=== PATIENT | male | born 1935 | race Caucasian/White ===

== ENCOUNTER 2016-12-02 17:42 | Inpatient (IN) | payer MEDICARE, OTHER ==
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
[2016-12-02 19:49] LABS: ABSOLUTE EOSINOPHILS # (AUTO) 0.1 10^3/uL (0.0-0.6); ABSOLUTE LYMPHOCYTES (AUTO) 0.5 10^3/uL (0.5-4.7); ABSOLUTE MONOCYTES (AUTO) 0.5 10^3/uL (0.1-1.4); ABSOLUTE NEUT (AUTO) 5.4 10^3/uL (1.7-8.2); BASOPHILS % (AUTO) 0.7 % (0-2); EOSINOPHILS % (AUTO) 2.2 % (0-6); HEMATOCRIT 23.2 % (37.9-51.0); HGB HCT DIFFERENCE -0.7; LYMPHOCYTES % (AUTO) 7.9 % (13-45); MEAN CORPUSCULAR HEMOGLOBIN 24.8 pg (27.0-33.4); MEAN CORPUSCULAR HGB CONC 32.1 g/dL (32.0-36.0); MEAN CORPUSCULAR VOLUME 77 fl (80-97); MONOCYTES % (AUTO) 7.4 % (3-13); RED CELL DISTRIBUTION WIDTH 18.1 % (11.5-14.0); SEGMENTED NEUTROPHILS % (AUTO) 81.8 % (42-78); WHITE BLOOD COUNT 6.6 10^3/uL (4.0-10.5)
[2016-12-02 19:59] LABS: HEMOGLOBIN 7.5 g/dL (13.5-17.0)
[2016-12-02 20:02] LABS: ALANINE AMINOTRANSFERASE 43 U/L (21-72); ALBUMIN 3.2 g/dL (3.5-5.0); ALKALINE PHOSPHATASE 191 U/L (38-126); ANION GAP 15 (5-19); ASPARTATE AMINO TRANSFERASE 34 U/L (17-59); BILIRUBIN,TOTAL 0.6 mg/dL (0.2-1.3); BLOOD UREA NITROGEN 65 mg/dL (7-20); CALCIUM 9.1 mg/dL (8.4-10.2); CARBON DIOXIDE 20 mmol/L (22-30); CHLORIDE 100 mmol/L (98-107); CREATINE KINASE 162 U/L (55-170); CREATININE RESULT 3.11 mg/dL (0.52-1.25); GLUCOSE 132 mg/dL (75-110); POTASSIUM 4.2 mmol/L (3.6-5.0); SODIUM 135.1 mmol/L (137-145); TOTAL PROTEIN 6.7 g/dL (6.3-8.2)
[2016-12-02 20:14] LABS: CREATINE KINASE MB 7.84 ng/mL (<4.55); TROPONIN I 0.017 ng/mL
[2016-12-02 21:36] LABS: PROTHROMBIN TIME 19.5 SEC (11.4-15.4)
[2016-12-02 21:37] LABS: PARTIAL THROMBOPLASTIN TIME 65.7 SEC (23.5-35.8)
[2016-12-02 22:02] LABS: APPEARANCE,URINE CLEAR; BILIRUBIN,URINE NEGATIVE (NEGATIVE); GLUCOSE, URINE NEGATIVE (NEGATIVE); KETONES,URINE NEGATIVE (NEGATIVE); LEUKOCYTE ESTERASE,URINE NEGATIVE (NEGATIVE); NITRITE,URINE NEGATIVE (NEGATIVE); PROTEIN,URINE NEGATIVE (NEGATIVE); URINE SPECIFIC GRAVITY 1.009; UROBILINOGEN,URINE NEGATIVE mg/dL (<2.0)
[2016-12-02] MEDS ORDERED: METHYLPREDNISOLONE INJ 125 MG/2 ML SDV IV ONE (22:31)
[2016-12-02] MEDS ORDERED: IPRATROPIUM/ALBUTEROL 0.5-2.5 MG/3 ML AMPUL NEB ONE (22:31)
[2016-12-02] MEDS ORDERED: FUROSEMIDE INJ/PF 100 MG/10 ML SDV IV ONE (22:31)
[2016-12-02] MEDS ORDERED: DILTIAZEM HCL/D5W 125 ML IV PRN (22:34)
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
[2016-12-03] MEDS ORDERED: ROPINIROLE HCL 1 MG TABLET PO PRN (05:22)
[2016-12-03] MEDS ORDERED: NORMAL SALINE 250 ML IV PRN (05:27)
[2016-12-03] MEDS: FUROSEMIDE INJ/PF 40 MG/4 ML SDV IV SCH ×2 (06:43→18:36)
[2016-12-03] MEDS ORDERED: ENOXAPARIN SODIUM INJ 30 MG/0.3 ML DISP.SYRIN SUBCUT SCH (08:00)
--- NOTE | 2016-12-03 08:11 | EKG REPORT ---
SEVERITY:- ABNORMAL ECG - ATRIAL FIBRILLATION, V-RATE 78-136 NONSPECIFIC T ABNORMALITIES, LATERAL LEADS BORDERLINE PROLONGED QT INTERVAL : Confirmed by: Abigail Peace MD 03-Dec-2016 08:11:00
[2016-12-03] MEDS: ATORVASTATIN CALCIUM 10 MG TABLET PO SCH (09:38)
[2016-12-03] MEDS: ROFLUMILAST 500 MCG TABLET PO SCH (09:38)
[2016-12-03] MEDS: FAMOTIDINE 20 MG TABLET PO SCH ×2 (09:39→22:00)
[2016-12-03] MEDS: TIOTROPIUM BROMIDE DPI 5 CAP/KIT (18 MCG/CAP) IH SCH (09:40)
[2016-12-03] MEDS: BUDESONIDE/FORMOTEROL 160-4.5 MCG 60 PUFF/6 GM MDI IH SCH ×2 (09:44→18:37)
[2016-12-03] MEDS ORDERED: METOPROLOL SUCCINATE 50 MG TAB.SR.24H PO SCH (10:00)
[2016-12-03] MEDS: IPRATROPIUM/ALBUTEROL 0.5-2.5 MG/3 ML AMPUL NEB SCH ×3 (11:24→20:50)
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
[2016-12-03 14:16] LABS: FOLATE > 20.00 ng/mL (>2.76)
[2016-12-03] MEDS: DABIGATRAN ETEXILATE 75 MG CAPSULE PO SCH ×2 (15:09→21:57)
[2016-12-03] MEDS: LEVOFLOXACIN 500 MG TABLET PO SCH (15:13)
[2016-12-03] MEDS: PREDNISONE 20 MG TABLET PO SCH (18:40)
[2016-12-03] MEDS: TAMSULOSIN HCL 0.4 MG CAP.SR.24H PO SCH (18:40)
[2016-12-03] MEDS: FINASTERIDE 5 MG TABLET PO SCH (22:00)
[2016-12-03] MEDS ORDERED: DILTIAZEM HCL 240 MG CAPSULE.CR PO ONE (23:00)
[2016-12-04] MEDS ORDERED: NORMAL SALINE 250 ML IV PRN (05:13)
[2016-12-04 05:27] LABS: ANION GAP 14 (5-19); BLOOD UREA NITROGEN 76 mg/dL (7-20); CALCIUM 9.2 mg/dL (8.4-10.2); CARBON DIOXIDE 21 mmol/L (22-30); CHLORIDE 100 mmol/L (98-107); CREATININE RESULT 2.93 mg/dL (0.52-1.25); GLUCOSE 120 mg/dL (75-110); POTASSIUM 4.4 mmol/L (3.6-5.0); SODIUM 135.4 mmol/L (137-145)
[2016-12-04 05:30] LABS: HEMATOCRIT 24.7 % (37.9-51.0); HGB HCT DIFFERENCE -0.7; MEAN CORPUSCULAR HEMOGLOBIN 25.4 pg (27.0-33.4); MEAN CORPUSCULAR HGB CONC 32.4 g/dL (32.0-36.0); MEAN CORPUSCULAR VOLUME 79 fl (80-97); RED BLOOD COUNT 3.15 10^6/uL (4.35-5.55); RED CELL DISTRIBUTION WIDTH 18.7 % (11.5-14.0); WHITE BLOOD COUNT 8.9 10^3/uL (4.0-10.5)
[2016-12-04 05:37] LABS: BAND NEUTROPHILS % (MANUAL) 1 % (3-5); BASOPHILS % (MANUAL) 0 % (0-2); EOSINOPHILS % (MANUAL) 0 % (0-6); LYMPHOCYTES % (MANUAL) 2 % (13-45); TOTAL CELLS COUNTED 100
[2016-12-04 05:38] LABS: ANISOCYTOSIS 1+
[2016-12-04 05:39] LABS: HYPOCHROMASIA SLIGHT; MICROCYTOSIS SLIGHT; POLYCHROMASIA SLIGHT
--- NOTE | 2016-12-04 08:07 | PDOC PROGRESS REPORT ---
Subjective Progress Note for:: 12/04/16 Physical Exam Vital Signs: Temp Pulse Resp BP Pulse Ox 97.4 F 63 16 108/65 100 12/04/16 06:55 12/04/16 06:55 12/04/16 06:55 12/04/16 06:55 12/04/16 06:55 Intake & Output 12/03/16 12/04/16 12/05/16 07:59 07:59 07:59 Intake Total 0 1110 Output Total 1450 Balance 0 -340 Weight 173 lb 8.061 oz General appearance: PRESENT: no acute distress Respiratory exam: PRESENT: prolonged expiratory phas, rhonchi, wheezes - mild Cardiovascular exam: PRESENT: irregular rhythm. ABSENT: diastolic murmur, systolic murmur GI/Abdominal exam: ABSENT: mass, organolmegaly, tenderness Extremities exam: PRESENT: pedal edema - trace Neurological exam: PRESENT: oriented to situation Psychiatric exam: PRESENT: appropriate affect Results Laboratory Results: 12/04/16 03:44 12/04/16 03:44 12/03/16 12/03/16 12/04/16 12:35 12:35 03:44 WBC 8.9 RBC 3.15 L Hgb 8.0 L Hct 24.7 L MCV 79 L MCH 25.4 L MCHC 32.4 RDW 18.7 H Plt Count 201 Seg Neutrophils % Not Reportable Lymphocytes % Not Reportable Monocytes % Not Reportable Eosinophils % Not Reportable Basophils % Not Reportable Absolute Neutrophils Not Reportable Absolute Lymphocytes Not Reportable Absolute Monocytes Not Reportable Absolute Eosinophils Not Reportable Absolute Basophils Not Reportable Retic Count (auto) 2.26 Absolute Retic 0.071 Sodium Potassium Chloride Carbon Dioxide Anion Gap BUN Creatinine Est GFR ( Amer) Est GFR (Non-Af Amer) Glucose Calcium Iron 23.1 L TIBC 299 % Saturation 8 Ferritin 69.00 Vitamin B12 > 1000.0 H Folate > 20.00 12/04/16 03:44 WBC RBC Hgb Hct MCV MCH MCHC RDW Plt Count Seg Neutrophils % Lymphocytes % Monocytes % Eosinophils % Basophils % Absolute Neutrophils Absolute Lymphocytes Absolute Monocytes Absolute Eosinophils Absolute Basophils Retic Count (auto) Absolute Retic Sodium 135.4 L Potassium 4.4 Chloride 100 Carbon Dioxide 21 L Anion Gap 14 BUN 76 H Creatinine 2.93 H Est GFR ( Amer) 25 L Est GFR (Non-Af Amer) 21 L Glucose 120 H Calcium 9.2 Iron TIBC % Saturation Ferritin Vitamin B12 Folate 12/04/16 03:44 NT-Pro-B Natriuret Pep 54870 H Impressions: Chest X-Ray 12/02/16 19:16 IMPRESSION: 7.5 cm masslike density in the upper medial aspect of the right lower lobe. Chest CT 12/02/16 21:15 IMPRESSION: 8 x 7 x 6 cm mass in the superior segment of the right lower lobe, broad areas of contact with the mediastinum and pleura are present. Moderate right pleural effusion is present. Scattered mediastinal bulky adenopathy. Assessment & Plan - Diagnosis (1) Acute on chronic systolic congestive heart failure Is this a current diagnosis for this admission?: YesPlan: less dyspnea but bun & Bnp climbing. Decrease furosemide to 40mg iv daily (2) Acute exacerbation of chronic bronchitis Is this a current diagnosis for this admission?: Yes (3) Acute kidney failure with tubular necrosis Is this a current diagnosis for this admission?: YesPlan: cr slightly lower (4) Malignant neoplasm of lower lobe, right bronchus or lung Is this a current diagnosis for this admission?: YesPlan: may not shorten life with advanced lung heart & renal problems. Explained to him
[2016-12-04] MEDS: IPRATROPIUM/ALBUTEROL 0.5-2.5 MG/3 ML AMPUL NEB SCH ×4 (08:24→19:28)
[2016-12-04] MEDS ORDERED: FUROSEMIDE INJ/PF 40 MG/4 ML SDV IV SCH (10:00)
[2016-12-04] MEDS: FAMOTIDINE 20 MG TABLET PO SCH ×2 (10:10→21:30)
[2016-12-04] MEDS: ATORVASTATIN CALCIUM 10 MG TABLET PO SCH (10:10)
[2016-12-04] MEDS: DILTIAZEM HCL 240 MG CAPSULE.CR PO SCH (10:11)
[2016-12-04] MEDS: ROFLUMILAST 500 MCG TABLET PO SCH (10:11)
[2016-12-04] MEDS: TIOTROPIUM BROMIDE DPI 5 CAP/KIT (18 MCG/CAP) IH SCH (10:12)
[2016-12-04] MEDS: PREDNISONE 20 MG TABLET PO SCH ×2 (10:12→17:47)
[2016-12-04] MEDS: BUDESONIDE/FORMOTEROL 160-4.5 MCG 60 PUFF/6 GM MDI IH SCH ×2 (10:13→17:47)
[2016-12-04] MEDS: DABIGATRAN ETEXILATE 75 MG CAPSULE PO SCH ×2 (11:17→17:47)
[2016-12-04] MEDS: TAMSULOSIN HCL 0.4 MG CAP.SR.24H PO SCH (17:47)
[2016-12-04] MEDS: FINASTERIDE 5 MG TABLET PO SCH (21:30)
[2016-12-04] MEDS: ROPINIROLE HCL 1 MG TABLET PO PRN (21:33)
[2016-12-05 04:48] LABS: ANION GAP 14 (5-19); BLOOD UREA NITROGEN 82 mg/dL (7-20); CALCIUM 9.4 mg/dL (8.4-10.2); CARBON DIOXIDE 23 mmol/L (22-30); CHLORIDE 100 mmol/L (98-107); CREATININE RESULT 3.06 mg/dL (0.52-1.25); GLUCOSE 153 mg/dL (75-110); POTASSIUM 3.8 mmol/L (3.6-5.0); SODIUM 137.2 mmol/L (137-145)
[2016-12-05 05:27] LABS: HEMATOCRIT 26.5 % (37.9-51.0); HEMOGLOBIN 8.8 g/dL (13.5-17.0); HGB HCT DIFFERENCE -0.1; MEAN CORPUSCULAR HEMOGLOBIN 25.9 pg (27.0-33.4); MEAN CORPUSCULAR HGB CONC 33.1 g/dL (32.0-36.0); MEAN CORPUSCULAR VOLUME 79 fl (80-97); RED BLOOD COUNT 3.38 10^6/uL (4.35-5.55); RED CELL DISTRIBUTION WIDTH 18.2 % (11.5-14.0); WHITE BLOOD COUNT 10.3 10^3/uL (4.0-10.5)
[2016-12-05 05:29] LABS: ANISOCYTOSIS 2+; BASOPHILS % (MANUAL) 0 % (0-2); BURR CELLS SLIGHT; EOSINOPHILS % (MANUAL) 0 % (0-6); HYPOCHROMASIA SLIGHT; LYMPHOCYTES % (MANUAL) 2 % (13-45); MICROCYTOSIS SLIGHT; OVALOCYTES SLIGHT; POIKILOCYTOSIS 1+; POLYCHROMASIA SLIGHT; SCHISTOCYTES SLIGHT; TOTAL CELLS COUNTED 100; TOXIC GRANULATION SLIGHT
[2016-12-05] MEDS: IPRATROPIUM/ALBUTEROL 0.5-2.5 MG/3 ML AMPUL NEB SCH ×4 (07:33→19:43)
[2016-12-05] MEDS ORDERED: NORMAL SALINE 250 ML IV PRN ×2 (08:05)
--- NOTE | 2016-12-05 08:05 | PDOC PROGRESS REPORT ---
Subjective Progress Note for:: 12/05/16 Subjective:: better. Off bipap Physical Exam Vital Signs: Temp Pulse Resp BP Pulse Ox 97.2 F 75 18 108/67 100 12/05/16 03:06 12/05/16 07:33 12/05/16 07:33 12/05/16 03:06 12/05/16 07:33 Intake & Output 12/03/16 12/04/16 12/05/16 07:59 07:59 07:59 Intake Total 0 1110 1159 Output Total 1450 750 Balance 0 -340 409 Weight 173 lb 8.061 oz 171 lb 11.841 oz General appearance: PRESENT: no acute distress Respiratory exam: PRESENT: rhonchi, wheezes Cardiovascular exam: PRESENT: irregular rhythm. ABSENT: diastolic murmur, systolic murmur GI/Abdominal exam: ABSENT: tenderness Extremities exam: ABSENT: pedal edema Results Laboratory Results: 12/05/16 04:13 12/05/16 04:13 12/05/16 12/05/16 04:13 04:13 WBC 10.3 RBC 3.38 L Hgb 8.8 L Hct 26.5 L MCV 79 L MCH 25.9 L MCHC 33.1 RDW 18.2 H Plt Count 204 Seg Neutrophils % Not Reportable Lymphocytes % Not Reportable Monocytes % Not Reportable Eosinophils % Not Reportable Basophils % Not Reportable Absolute Neutrophils Not Reportable Absolute Lymphocytes Not Reportable Absolute Monocytes Not Reportable Absolute Eosinophils Not Reportable Absolute Basophils Not Reportable Sodium 137.2 Potassium 3.8 Chloride 100 Carbon Dioxide 23 Anion Gap 14 BUN 82 H Creatinine 3.06 H Est GFR ( Amer) 24 L Est GFR (Non-Af Amer) 20 L Glucose 153 H Calcium 9.4 12/04/16 12/05/16 03:44 04:13 NT-Pro-B Natriuret Pep 94300 H 38764 H Impressions: Chest X-Ray 12/02/16 19:16 IMPRESSION: 7.5 cm masslike density in the upper medial aspect of the right lower lobe. Chest CT 12/02/16 21:15 IMPRESSION: 8 x 7 x 6 cm mass in the superior segment of the right lower lobe, broad areas of contact with the mediastinum and pleura are present. Moderate right pleural effusion is present. Scattered mediastinal bulky adenopathy. Assessment & Plan - Diagnosis (1) Acute on chronic systolic congestive heart failure Is this a current diagnosis for this admission?: YesPlan: weight stable. BUN & Bnp climbing. Hold furosemide. 1 more prbc (2) Acute exacerbation of chronic bronchitis Is this a current diagnosis for this admission?: Yes (3) Acute kidney failure with tubular necrosis Is this a current diagnosis for this admission?: Yes (4) Malignant neoplasm of lower lobe, right bronchus or lung Is this a current diagnosis for this admission?: Yes (5) Iron deficiency anemia due to chronic blood loss Is this a current diagnosis for this admission?: YesPlan: hct up 3 to 26 after 2u. Iron sat low. 1 more u.
[2016-12-05] MEDS: DILTIAZEM HCL 240 MG CAPSULE.CR PO SCH (08:14)
[2016-12-05] MEDS: ATORVASTATIN CALCIUM 10 MG TABLET PO SCH (08:57)
[2016-12-05] MEDS: FAMOTIDINE 20 MG TABLET PO SCH ×2 (08:57→21:39)
[2016-12-05] MEDS: PREDNISONE 20 MG TABLET PO SCH ×2 (08:58→17:31)
[2016-12-05] MEDS: ROFLUMILAST 500 MCG TABLET PO SCH (08:58)
[2016-12-05] MEDS: TIOTROPIUM BROMIDE DPI 5 CAP/KIT (18 MCG/CAP) IH SCH (08:59)
[2016-12-05] MEDS: DABIGATRAN ETEXILATE 75 MG CAPSULE PO SCH ×2 (08:59→17:32)
[2016-12-05] MEDS: BUDESONIDE/FORMOTEROL 160-4.5 MCG 60 PUFF/6 GM MDI IH SCH ×2 (08:59→17:32)
[2016-12-05] MEDS: FERROUS SULFATE 325 MG TABLET PO SCH (11:29)
[2016-12-05] MEDS: LEVOFLOXACIN 500 MG TABLET PO SCH (16:35)
[2016-12-05 17:08] LABS: HEMATOCRIT 29.5 % (37.9-51.0); HEMOGLOBIN 9.5 g/dL (13.5-17.0); MEAN CORPUSCULAR HEMOGLOBIN 25.7 pg (27.0-33.4); MEAN CORPUSCULAR HGB CONC 32.1 g/dL (32.0-36.0); MEAN CORPUSCULAR VOLUME 80 fl (80-97); RED CELL DISTRIBUTION WIDTH 18.2 % (11.5-14.0); WHITE BLOOD COUNT 11.3 10^3/uL (4.0-10.5)
[2016-12-05] MEDS: TAMSULOSIN HCL 0.4 MG CAP.SR.24H PO SCH (17:31)
[2016-12-05 17:42] LABS: BASOPHILS % (MANUAL) 0 % (0-2); EOSINOPHILS % (MANUAL) 0 % (0-6); LYMPHOCYTES % (MANUAL) 1 % (13-45); TOTAL CELLS COUNTED 100
[2016-12-05 17:44] LABS: ANISOCYTOSIS 1+; HYPOCHROMASIA 1+; MICROCYTOSIS SLIGHT; OVALOCYTES SLIGHT; POIKILOCYTOSIS 1+; SCHISTOCYTES SLIGHT; TARGET CELLS SLIGHT
[2016-12-05] MEDS: FINASTERIDE 5 MG TABLET PO SCH (21:39)
[2016-12-05] MEDS: ROPINIROLE HCL 1 MG TABLET PO PRN (21:42)
[2016-12-06 05:24] LABS: ANION GAP 13 (5-19); BLOOD UREA NITROGEN 85 mg/dL (7-20); CALCIUM 9.6 mg/dL (8.4-10.2); CARBON DIOXIDE 23 mmol/L (22-30); CHLORIDE 104 mmol/L (98-107); CREATININE RESULT 2.99 mg/dL (0.52-1.25); GLUCOSE 130 mg/dL (75-110); POTASSIUM 4.1 mmol/L (3.6-5.0); SODIUM 140.4 mmol/L (137-145)
[2016-12-06] MEDS: IPRATROPIUM/ALBUTEROL 0.5-2.5 MG/3 ML AMPUL NEB SCH ×4 (07:32→19:51)
--- NOTE | 2016-12-06 07:35 | PDOC PROGRESS REPORT ---
Subjective Progress Note for:: 12/06/16 Subjective:: less dyspnea than on admission. Off oxygen. Wants dnr: no cpr or vent Physical Exam Vital Signs: Temp Pulse Resp BP Pulse Ox 97.9 F 114 H 17 109/77 96 12/06/16 04:21 12/06/16 04:21 12/06/16 04:21 12/06/16 04:21 12/06/16 04:21 Intake & Output 12/04/16 12/05/16 12/06/16 07:59 07:59 07:59 Intake Total 1110 1159 1544 Output Total 1450 750 775 Balance -340 409 769 Weight 173 lb 8.061 oz 171 lb 11.841 oz 176 lb 12.972 oz General appearance: PRESENT: no acute distress Respiratory exam: PRESENT: rhonchi, wheezes Cardiovascular exam: PRESENT: irregular rhythm. ABSENT: diastolic murmur, systolic murmur GI/Abdominal exam: ABSENT: mass, organolmegaly, tenderness Extremities exam: ABSENT: pedal edema Neurological exam: PRESENT: oriented to situation Psychiatric exam: PRESENT: appropriate affect Results Laboratory Results: 12/05/16 16:47 12/06/16 04:00 12/05/16 12/06/16 16:47 04:00 WBC 11.3 H RBC 3.70 L Hgb 9.5 L Hct 29.5 L MCV 80 MCH 25.7 L MCHC 32.1 RDW 18.2 H Plt Count 205 Seg Neutrophils % Not Reportable Lymphocytes % Not Reportable Monocytes % Not Reportable Eosinophils % Not Reportable Basophils % Not Reportable Absolute Neutrophils Not Reportable Absolute Lymphocytes Not Reportable Absolute Monocytes Not Reportable Absolute Eosinophils Not Reportable Absolute Basophils Not Reportable Sodium 140.4 Potassium 4.1 Chloride 104 Carbon Dioxide 23 Anion Gap 13 BUN 85 H Creatinine 2.99 H Est GFR ( Amer) 25 L Est GFR (Non-Af Amer) 20 L Glucose 130 H Calcium 9.6 12/04/16 12/05/16 12/06/16 03:44 04:13 04:00 NT-Pro-B Natriuret Pep 11146 H 19578 H 75038 H Impressions: Chest X-Ray 12/02/16 19:16 IMPRESSION: 7.5 cm masslike density in the upper medial aspect of the right lower lobe. Chest CT 12/02/16 21:15 IMPRESSION: 8 x 7 x 6 cm mass in the superior segment of the right lower lobe, broad areas of contact with the mediastinum and pleura are present. Moderate right pleural effusion is present. Scattered mediastinal bulky adenopathy. Assessment & Plan - Diagnosis (1) Acute on chronic systolic congestive heart failure Is this a current diagnosis for this admission?: YesPlan: bun76,85. Bnp still about 30k. Holding furosemide. DNR (2) Acute exacerbation of chronic bronchitis Is this a current diagnosis for this admission?: YesPlan: still wheezing off metoprolol. Continue prednisone & levaquin. (3) Acute kidney failure with tubular necrosis Is this a current diagnosis for this admission?: Yes (4) Malignant neoplasm of lower lobe, right bronchus or lung Is this a current diagnosis for this admission?: Yes (5) Iron deficiency anemia due to chronic blood loss Is this a current diagnosis for this admission?: YesPlan: hct 30 p 3rd prbc
[2016-12-06] MEDS: PREDNISONE 20 MG TABLET PO SCH ×2 (10:35→17:15)
[2016-12-06] MEDS: FERROUS SULFATE 325 MG TABLET PO SCH (10:36)
[2016-12-06] MEDS: FAMOTIDINE 20 MG TABLET PO SCH ×2 (10:36→21:07)
[2016-12-06] MEDS: ATORVASTATIN CALCIUM 10 MG TABLET PO SCH (10:36)
[2016-12-06] MEDS: DILTIAZEM HCL 240 MG CAPSULE.CR PO SCH (10:36)
[2016-12-06] MEDS: ROFLUMILAST 500 MCG TABLET PO SCH (10:36)
[2016-12-06] MEDS: TIOTROPIUM BROMIDE DPI 5 CAP/KIT (18 MCG/CAP) IH SCH (10:37)
[2016-12-06] MEDS: BUDESONIDE/FORMOTEROL 160-4.5 MCG 60 PUFF/6 GM MDI IH SCH ×2 (10:37→17:15)
[2016-12-06] MEDS: DABIGATRAN ETEXILATE 75 MG CAPSULE PO SCH ×2 (10:37→17:14)
[2016-12-06] MEDS: TAMSULOSIN HCL 0.4 MG CAP.SR.24H PO SCH (17:15)
[2016-12-06] MEDS: ROPINIROLE HCL 1 MG TABLET PO PRN (21:07)
[2016-12-06] MEDS: FINASTERIDE 5 MG TABLET PO SCH (21:07)
[2016-12-07 05:05] LABS: ANION GAP 13 (5-19); BLOOD UREA NITROGEN 82 mg/dL (7-20); CALCIUM 9.2 mg/dL (8.4-10.2); CARBON DIOXIDE 22 mmol/L (22-30); CHLORIDE 103 mmol/L (98-107); CREATININE RESULT 2.67 mg/dL (0.52-1.25); GLUCOSE 110 mg/dL (75-110); POTASSIUM 4.4 mmol/L (3.6-5.0)
--- NOTE | 2016-12-07 07:59 | PDOC PROGRESS REPORT ---
Subjective Progress Note for:: 12/07/16 Subjective:: wants home Physical Exam Vital Signs: Temp Pulse Resp BP Pulse Ox 98.2 F 153 H 12 109/75 99 12/07/16 04:23 12/07/16 04:23 12/07/16 04:23 12/07/16 04:23 12/07/16 04:23 Intake & Output 12/05/16 12/06/16 12/07/16 07:59 07:59 07:59 Intake Total 1159 1544 1170 Output Total 750 775 Balance 696 181 0243 Weight 171 lb 11.841 oz 176 lb 12.972 oz General appearance: PRESENT: no acute distress Respiratory exam: PRESENT: rhonchi, wheezes - still loud Cardiovascular exam: PRESENT: irregular rhythm. ABSENT: diastolic murmur, systolic murmur GI/Abdominal exam: ABSENT: mass, organolmegaly, tenderness Extremities exam: ABSENT: pedal edema Neurological exam: PRESENT: oriented to situation Psychiatric exam: PRESENT: appropriate affect Results Laboratory Results: 12/05/16 16:47 12/07/16 03:39 12/07/16 03:39 Sodium 138.0 Potassium 4.4 Chloride 103 Carbon Dioxide 22 Anion Gap 13 BUN 82 H Creatinine 2.67 H Est GFR ( Amer) 28 L Est GFR (Non-Af Amer) 23 L Glucose 110 Calcium 9.2 12/04/16 08:55 Sputum Gram Stain - Final 12/04/16 08:55 Sputum Sputum Culture - Final NORMAL SALVATORE 12/04/16 12/05/16 12/06/16 03:44 04:13 04:00 NT-Pro-B Natriuret Pep 01654 H 34657 H 67515 H Impressions: Chest X-Ray 12/02/16 19:16 IMPRESSION: 7.5 cm masslike density in the upper medial aspect of the right lower lobe. Chest CT 12/02/16 21:15 IMPRESSION: 8 x 7 x 6 cm mass in the superior segment of the right lower lobe, broad areas of contact with the mediastinum and pleura are present. Moderate right pleural effusion is present. Scattered mediastinal bulky adenopathy. Assessment & Plan - Diagnosis (1) Acute on chronic systolic congestive heart failure Is this a current diagnosis for this admission?: YesPlan: Although Bnp around 30k, cxr & ct did not mention edema. Nadege ejection 30%. I suspect his emphysema is worse than his systolic failure now. Check VpCO2 (2) Acute exacerbation of chronic bronchitis Is this a current diagnosis for this admission?: YesPlan: Lungs far from clear. Day 5 prednisone & levaquin. Finish 7 days. (3) Acute kidney failure with tubular necrosis Is this a current diagnosis for this admission?: YesPlan: bun peaked at 85 now 82. Cr peaked at 3.1 now 2.7 off furosemide. Resume when edema substantial. (4) Malignant neoplasm of lower lobe, right bronchus or lung Is this a current diagnosis for this admission?: Yes (5) Iron deficiency anemia due to chronic blood loss Is this a current diagnosis for this admission?: Yes (6) Prediabetes Is this a current diagnosis for this admission?: YesPlan: A1c6.2.
[2016-12-07] MEDS: IPRATROPIUM/ALBUTEROL 0.5-2.5 MG/3 ML AMPUL NEB SCH ×4 (08:22→20:32)
[2016-12-07] MEDS: DABIGATRAN ETEXILATE 75 MG CAPSULE PO SCH ×2 (09:53→18:45)
[2016-12-07] MEDS: DILTIAZEM HCL 240 MG CAPSULE.CR PO SCH (09:54)
[2016-12-07] MEDS: ATORVASTATIN CALCIUM 10 MG TABLET PO SCH (09:55)
[2016-12-07] MEDS: FERROUS SULFATE 325 MG TABLET PO SCH (09:55)
[2016-12-07] MEDS: BUDESONIDE/FORMOTEROL 160-4.5 MCG 60 PUFF/6 GM MDI IH SCH ×2 (09:56→18:45)
[2016-12-07] MEDS: ROFLUMILAST 500 MCG TABLET PO SCH (09:56)
[2016-12-07] MEDS: PREDNISONE 20 MG TABLET PO SCH ×2 (09:56→18:46)
[2016-12-07] MEDS: FAMOTIDINE 20 MG TABLET PO SCH ×2 (09:56→21:47)
[2016-12-07] MEDS: LEVOFLOXACIN 500 MG TABLET PO SCH (16:27)
[2016-12-07] MEDS: TIOTROPIUM BROMIDE DPI 5 CAP/KIT (18 MCG/CAP) IH SCH (16:28)
[2016-12-07] MEDS: TAMSULOSIN HCL 0.4 MG CAP.SR.24H PO SCH (18:47)
[2016-12-07] MEDS: FINASTERIDE 5 MG TABLET PO SCH (21:47)
[2016-12-07] MEDS: ROPINIROLE HCL 1 MG TABLET PO PRN (21:47)
[2016-12-08 05:08] LABS: VENOUS BLOOD BASE EXCESS -3.9 mmol/L; VENOUS BLOOD HCO3 21.2 mmol/L (20-32); VENOUS BLOOD PCO2 38.3 mmHg (35-63); VENOUS BLOOD PH 7.36 (7.30-7.42)
[2016-12-08 05:53] LABS: ANION GAP 14 (5-19); BLOOD UREA NITROGEN 88 mg/dL (7-20); CALCIUM 9.4 mg/dL (8.4-10.2); CARBON DIOXIDE 21 mmol/L (22-30); CHLORIDE 106 mmol/L (98-107); CREATININE RESULT 2.41 mg/dL (0.52-1.25); GLUCOSE 120 mg/dL (75-110); POTASSIUM 4.6 mmol/L (3.6-5.0); SODIUM 140.6 mmol/L (137-145)
--- NOTE | 2016-12-08 08:11 | PDOC PROGRESS REPORT ---
Subjective Progress Note for:: 12/08/16 Subjective:: better Physical Exam Vital Signs: Temp Pulse Resp BP Pulse Ox 98.3 F 95 20 106/73 93 12/08/16 03:45 12/08/16 03:45 12/08/16 03:45 12/08/16 03:45 12/08/16 03:45 Intake & Output 12/07/16 12/08/16 12/09/16 07:59 07:59 07:59 Intake Total 1470 1135 Output Total 400 Balance 1470 735 Weight 176 lb 5.917 oz 175 lb 7.807 oz General appearance: PRESENT: no acute distress Respiratory exam: PRESENT: wheezes - minimal! Cardiovascular exam: PRESENT: irregular rhythm. ABSENT: diastolic murmur, systolic murmur GI/Abdominal exam: PRESENT: tenderness Extremities exam: ABSENT: pedal edema Neurological exam: PRESENT: oriented to situation Psychiatric exam: PRESENT: appropriate affect Results Laboratory Results: 12/05/16 16:47 12/08/16 04:58 12/08/16 12/08/16 04:58 04:58 VBG pH 7.36 VBG pCO2 38.3 VBG HCO3 21.2 VBG Base Excess -3.9 Sodium 140.6 Potassium 4.6 Chloride 106 Carbon Dioxide 21 L Anion Gap 14 BUN 88 H Creatinine 2.41 H Est GFR ( Amer) 32 L Est GFR (Non-Af Amer) 26 L Glucose 120 H Calcium 9.4 12/04/16 12/05/16 12/06/16 03:44 04:13 04:00 NT-Pro-B Natriuret Pep 32163 H 77175 H 35485 H Impressions: Chest X-Ray 12/02/16 19:16 IMPRESSION: 7.5 cm masslike density in the upper medial aspect of the right lower lobe. Chest CT 12/02/16 21:15 IMPRESSION: 8 x 7 x 6 cm mass in the superior segment of the right lower lobe, broad areas of contact with the mediastinum and pleura are present. Moderate right pleural effusion is present. Scattered mediastinal bulky adenopathy. Assessment & Plan - Diagnosis (1) Acute on chronic systolic congestive heart failure Is this a current diagnosis for this admission?: YesPlan: no edema yet off furosemide (2) Acute exacerbation of chronic bronchitis Is this a current diagnosis for this admission?: YesPlan: d6 levaquin & prednisone (3) Acute kidney failure with tubular necrosis Is this a current diagnosis for this admission?: YesPlan: cr2.4. 2015 baseline 2.3. Bun climbing. Force fluids (4) Malignant neoplasm of lower lobe, right bronchus or lung Is this a current diagnosis for this admission?: Yes (5) Iron deficiency anemia due to chronic blood loss Is this a current diagnosis for this admission?: Yes (6) Prediabetes Is this a current diagnosis for this admission?: Yes
[2016-12-08] MEDS: IPRATROPIUM/ALBUTEROL 0.5-2.5 MG/3 ML AMPUL NEB SCH ×4 (08:47→19:41)
[2016-12-08] MEDS: FAMOTIDINE 20 MG TABLET PO SCH ×2 (09:28→21:34)
[2016-12-08] MEDS: BUDESONIDE/FORMOTEROL 160-4.5 MCG 60 PUFF/6 GM MDI IH SCH ×2 (09:28→18:13)
[2016-12-08] MEDS: DABIGATRAN ETEXILATE 75 MG CAPSULE PO SCH ×2 (09:28→18:15)
[2016-12-08] MEDS: TIOTROPIUM BROMIDE DPI 5 CAP/KIT (18 MCG/CAP) IH SCH (09:29)
[2016-12-08] MEDS: FERROUS SULFATE 325 MG TABLET PO SCH (09:30)
[2016-12-08] MEDS: DILTIAZEM HCL 240 MG CAPSULE.CR PO SCH (09:30)
[2016-12-08] MEDS: ATORVASTATIN CALCIUM 10 MG TABLET PO SCH (09:30)
[2016-12-08] MEDS: PREDNISONE 20 MG TABLET PO SCH ×2 (09:36→18:14)
[2016-12-08] MEDS: ROFLUMILAST 500 MCG TABLET PO SCH (09:36)
[2016-12-08] MEDS: TAMSULOSIN HCL 0.4 MG CAP.SR.24H PO SCH (18:15)
[2016-12-08] MEDS: FINASTERIDE 5 MG TABLET PO SCH (21:34)
[2016-12-08] MEDS: ROPINIROLE HCL 1 MG TABLET PO PRN (21:37)
[2016-12-09] MEDS ORDERED: DILTIAZEM HCL 180 MG CAPSULE.CR PO ONE (04:30)
[2016-12-09 05:09] LABS: ANION GAP 15 (5-19); BLOOD UREA NITROGEN 95 mg/dL (7-20); CALCIUM 9.4 mg/dL (8.4-10.2); CARBON DIOXIDE 20 mmol/L (22-30); CHLORIDE 104 mmol/L (98-107); CREATININE RESULT 2.37 mg/dL (0.52-1.25); GLUCOSE 110 mg/dL (75-110); POTASSIUM 4.9 mmol/L (3.6-5.0); SODIUM 138.8 mmol/L (137-145)
--- NOTE | 2016-12-09 07:25 | PDOC DISCHARGE SUMMARY ---
General - Admit/Disc Date/PCP Admission Date/Primary Care Provider: 12/03/16 05:14 CATE SCHMIDT MD Discharge Date: 12/09/16 - Discharge Diagnosis (1) Acute on chronic systolic congestive heart failure Is this a current diagnosis for this admission?: YesSummary: Held furosemide after a couple of days because bun has climbed from 65 to 95 in spite of forcing fluids. Creatinine declined from 3.1 to 2.3=baseline. Bnp went from 28k to 36k to 29k partly because of chronic kidney disease. Will resume furosemide when needed. (2) Acute exacerbation of chronic bronchitis Is this a current diagnosis for this admission?: YesSummary: much better after a week of prednisone & levaquin off metoprolol (3) Acute kidney failure with tubular necrosis Is this a current diagnosis for this admission?: Yes (4) Malignant neoplasm of lower lobe, right bronchus or lung Is this a current diagnosis for this admission?: YesSummary: understands probably cancer in lung & mediastinal nodes. He will probably first from emphysema or heart failure. His performance status will not permit biopsy or chemo. Continue dnr (5) Iron deficiency anemia due to chronic blood loss Is this a current diagnosis for this admission?: YesSummary: saturation 8 but ferritin 69. Will stop iron for now. (6) Prediabetes Is this a current diagnosis for this admission?: YesSummary: A1c6.2 explains boderline sugars. He will not live long enough to become diabetic. (7) Afib Is this a current diagnosis for this admission?: YesSummary: stopped metoprolol. Increased diltiazem to 300mg for rate 66-153. - Additional Information Resuscitation Status: Do Not Resuscitate Discharge Diet: Cardiac, Other (Comments) - renal Discharge Activity: Activity As Tolerated, Balance Activity w/Rest, Weigh Daily Home Medications: Alfuzosin HCl [Alfuzosin HCl ER] 10 mg PO DAILY 12/03/16 Atorvastatin Calcium [Lipitor 10 mg Tablet] 10 mg PO DAILY 12/03/16 Budesonide/Formoterol Fumarate [Symbicort HFA 160-4.5 mcg Inhaler 6 gm] 2 puff IH BID 12/03/16 Dabigatran Etexilate Mesylate [Pradaxa 75 mg Capsule] 75 mg PO Q12 12/03/16 Finasteride [Proscar 5 mg Tablet] 5 mg PO DAILY 12/03/16 Ipratropium/Albuterol Sulfate [Iprat-Albut 0.5-3(2.5) mg/3 ml] 3 ml NEB QID Omeprazole 40 mg PO DAILY 12/03/16 Roflumilast [Daliresp 500 mcg Tablet] 500 mg PO DAILY 12/03/16 Ropinirole HCl 1 mg PO HSP PRN 12/03/16 Tiotropium [place] [Spiriva Handihaler 5 Cap/Kit (18 Mcg/Cap)] 2 puff IH DAILY 12/03/16 Diltiazem HCl [Diltiazem 24Hr Cd] 300 mg PO DAILY #30 cap.er.24h 12/09/16 History of Present Illness Patient complains of: dyspnea History of Present Illness: DIANNE BAIRD is a 81 year old male with 3d increased hanson, pnd, cough, wheeze, hemoptysis, edema. Hospital Course Hospital Course: see above Physical Exam Vital Signs: Temp Pulse Resp BP Pulse Ox 98.3 F 126 H 18 114/83 97 12/09/16 03:47 12/09/16 03:47 12/09/16 03:47 12/09/16 03:47 12/09/16 03:47 Intake & Output 12/07/16 12/08/16 12/09/16 07:59 07:59 07:59 Intake Total 1470 1135 1301 Output Total 400 200 Balance 1166 685 2642 Weight 176 lb 5.917 oz 175 lb 7.807 oz General appearance: PRESENT: no acute distress Respiratory exam: PRESENT: wheezes - minimal Cardiovascular exam: PRESENT: irregular rhythm. ABSENT: diastolic murmur, systolic murmur Rectal exam: ABSENT: tenderness Extremities exam: ABSENT: pedal edema Neurological exam: PRESENT: oriented to situation Psychiatric exam: PRESENT: appropriate affect Results Laboratory Results: 12/05/16 16:47 12/09/16 04:02 12/09/16 04:02 Sodium 138.8 Potassium 4.9 Chloride 104 Carbon Dioxide 20 L Anion Gap 15 BUN 95 H Creatinine 2.37 H Est GFR ( Amer) 32 L Est GFR (Non-Af Amer) 27 L Glucose 110 Calcium 9.4 12/04/16 12/05/16 12/06/16 03:44 04:13 04:00 NT-Pro-B Natriuret Pep 25477 H 84126 H 33371 H Labs- Last Values WBC 11.3 10^3/uL (4.0-10.5) H 12/05/16 16:47 RBC 3.70 10^6/uL (4.35-5.55) L 12/05/16 16:47 Hgb 9.5 g/dL (13.5-17.0) L 12/05/16 16:47 Hct 29.5 % (37.9-51.0) L 12/05/16 16:47 MCV 80 fl (80-97) 12/05/16 16:47 MCH 25.7 pg (27.0-33.4) L 12/05/16 16:47 MCHC 32.1 g/dL (32.0-36.0) 12/05/16 16:47 RDW 18.2 % (11.5-14.0) H 12/05/16 16:47 Plt Count 205 10^3/uL (150-450) 12/05/16 16:47 Total Counted 100 12/05/16 16:47 Seg Neutrophils % Not Reportable 12/05/16 16:47 Seg Neuts % (Manual) 98 % (42-78) H 12/05/16 16:47 Band Neutrophils % 1 % (3-5) L 12/04/16 03:44 Lymphocytes % Not Reportable 12/05/16 16:47 Lymphocytes % (Manual) 1 % (13-45) L 12/05/16 16:47 Monocytes % Not Reportable 12/05/16 16:47 Monocytes % (Manual) 1 % (3-13) L 12/05/16 16:47 Eosinophils % Not Reportable 12/05/16 16:47 Eosinophils % (Manual) 0 % (0-6) 12/05/16 16:47 Basophils % Not Reportable 12/05/16 16:47 Basophils % (Manual) 0 % (0-2) 12/05/16 16:47 Absolute Neutrophils Not Reportable 12/05/16 16:47 Abs Neuts (Manual) 11.1 10^3/uL (1.7-8.2) H 12/05/16 16:47 Absolute Lymphocytes Not Reportable 12/05/16 16:47 Abs Lymphs (Manual) 0.1 10^3/uL (0.5-4.7) L 12/05/16 16:47 Absolute Monocytes Not Reportable 12/05/16 16:47 Abs Monocytes (Manual) 0.1 10^3/uL (0.1-1.4) 12/05/16 16:47 Absolute Eosinophils Not Reportable 12/05/16 16:47 Absolute Eos (Manual) 0.0 10^3/uL (0.0-0.6) 12/05/16 16:47 Absolute Basophils Not Reportable 12/05/16 16:47 Abs Basophils (Manual) 0.0 10^3/uL (0.0-0.2) 12/05/16 16:47 Toxic Granulation SLIGHT 12/05/16 04:13 Platelet Comment ADEQUATE 12/05/16 16:47 Polychromasia SLIGHT 12/05/16 04:13 Hypochromasia 1+ 12/05/16 16:47 Poikilocytosis 1+ 12/05/16 16:47 Basophilic Stippling PRESENT 12/04/16 03:44 Anisocytosis 1+ 12/05/16 16:47 Microcytosis SLIGHT 12/05/16 16:47 Target Cells SLIGHT 12/05/16 16:47 Ovalocytes SLIGHT 12/05/16 16:47 [place] Cells SLIGHT 12/05/16 04:13 Schistocytes SLIGHT 12/05/16 16:47 Retic Count (auto) 2.26 % (0.66-2.85) 12/03/16 12:35 Absolute Retic 0.071 10^6/uL (0.028-0.122) 12/03/16 12:35 PT 19.5 SEC (11.4-15.4) H 12/02/16 19:10 INR 1.58 12/02/16 19:10 APTT 65.7 SEC (23.5-35.8) H 12/02/16 19:10 VBG pH 7.36 (7.30-7.42) 12/08/16 04:58 VBG pCO2 38.3 mmHg (35-63) 12/08/16 04:58 VBG HCO3 21.2 mmol/L (20-32) 12/08/16 04:58 VBG Base Excess -3.9 mmol/L 12/08/16 04:58 Sodium 138.8 mmol/L (137-145) 12/09/16 04:02 Potassium 4.9 mmol/L (3.6-5.0) 12/09/16 04:02 Chloride 104 mmol/L (98-107) 12/09/16 04:02 Carbon Dioxide 20 mmol/L (22-30) L 12/09/16 04:02 Anion Gap 15 (5-19) 12/09/16 04:02 BUN 95 mg/dL (7-20) H 12/09/16 04:02 Creatinine 2.37 mg/dL (0.52-1.25) H 12/09/16 04:02 Est GFR ( Amer) 32 (>60) L 12/09/16 04:02 Est GFR (Non-Af Amer) 27 (>60) L 12/09/16 04:02 Glucose 110 mg/dL (75-110) 12/09/16 04:02 Hemoglobin A1c % 6.2 % (4.7-6.0) H 12/06/16 04:00 Calcium 9.4 mg/dL (8.4-10.2) 12/09/16 04:02 Iron 23.1 ug/dL (49-181) L 12/03/16 12:35 TIBC 299 ug/dL (250-450) 12/03/16 12:35 % Saturation 8 % 12/03/16 12:35 Ferritin 69.00 ng/mL (17.9-464.0) 12/03/16 12:35 Total Bilirubin 0.6 mg/dL (0.2-1.3) 12/02/16 19:10 Direct Bilirubin 0.0 mg/dL (0.0-0.3) 12/02/16 19:10 AST 34 U/L (17-59) 12/02/16 19:10 ALT 43 U/L (21-72) 12/02/16 19:10 Alkaline Phosphatase 191 U/L (38-126) H 12/02/16 19:10 Creatine Kinase 162 U/L (55-170) 12/02/16 19:10 CK-MB (CK-2) 7.84 ng/mL (<4.55) H 12/02/16 19:10 Troponin I 0.017 ng/mL 12/02/16 19:10 NT-Pro-B Natriuret Pep 23093 pg/mL (<450) H 12/06/16 04:00 Total Protein 6.7 g/dL (6.3-8.2) 12/02/16 19:10 Albumin 3.2 g/dL (3.5-5.0) L 12/02/16 19:10 Vitamin B12 > 1000.0 pg/mL (239-931) H 12/03/16 12:35 Folate > 20.00 ng/mL (>2.76) 12/03/16 12:35 Urine Color YELLOW 12/02/16 21:25 Urine Appearance CLEAR 12/02/16 21:25 Urine pH 5.0 (5.0-9.0) 12/02/16 21:25 Ur Specific [place] 1.009 12/02/16 21:25 Urine Protein NEGATIVE mg/dL (NEGATIVE) 12/02/16 21:25 Urine Glucose (UA) NEGATIVE mg/dL (NEGATIVE) 12/02/16 21:25 Urine Ketones NEGATIVE mg/dL (NEGATIVE) 12/02/16 21:25 Urine Blood NEGATIVE (NEGATIVE) 12/02/16 21:25 Urine Nitrite NEGATIVE (NEGATIVE) 12/02/16 21:25 Urine Bilirubin NEGATIVE (NEGATIVE) 12/02/16 21:25 Urine Urobilinogen NEGATIVE mg/dL (<2.0) 12/02/16 21:25 Ur Leukocyte Esterase NEGATIVE (NEGATIVE) 12/02/16 21:25 Urine WBC (Auto) 1 /HPF 12/02/16 21:25 Urine RBC (Auto) 0 /HPF 12/02/16 21:25 Urine Ascorbic Acid NEGATIVE (NEGATIVE) 12/02/16 21:25 Blood Type A POSITIVE 12/02/16 23:22 Blood Type Confirm A POSITIVE 12/02/16 23:22 Antibody Screen NEGATIVE 12/02/16 23:22 Crossmatch See Detail 12/02/16 23:22 Impressions: Chest X-Ray 12/02/16 19:16 IMPRESSION: 7.5 cm masslike density in the upper medial aspect of the right lower lobe. Chest CT 12/02/16 21:15 IMPRESSION: 8 x 7 x 6 cm mass in the superior segment of the right lower lobe, broad areas of contact with the mediastinum and pleura are present. Moderate right pleural effusion is present. Scattered mediastinal bulky adenopathy. Qualifiers PATEINT BEING DISCHARGED WITH ANY OF THE FOLLOWING DIAGNOSIS?: No Plan Discharge Plan: home health. 1w ov
[2016-12-09] MEDS: IPRATROPIUM/ALBUTEROL 0.5-2.5 MG/3 ML AMPUL NEB SCH ×3 (07:58→13:56)
[2016-12-09] MEDS: PREDNISONE 20 MG TABLET PO SCH (09:33)
[2016-12-09] MEDS: ROFLUMILAST 500 MCG TABLET PO SCH (09:33)
[2016-12-09] MEDS: ATORVASTATIN CALCIUM 10 MG TABLET PO SCH (09:34)
[2016-12-09] MEDS: TIOTROPIUM BROMIDE DPI 5 CAP/KIT (18 MCG/CAP) IH SCH (09:34)
[2016-12-09] MEDS: FERROUS SULFATE 325 MG TABLET PO SCH (09:34)
[2016-12-09] MEDS: DABIGATRAN ETEXILATE 75 MG CAPSULE PO SCH (09:34)
[2016-12-09] MEDS: BUDESONIDE/FORMOTEROL 160-4.5 MCG 60 PUFF/6 GM MDI IH SCH (09:34)
[2016-12-09] MEDS: FAMOTIDINE 20 MG TABLET PO SCH (09:34)
[2016-12-09] MEDS ORDERED: DILTIAZEM HCL 180 MG CAPSULE.CR PO SCH (10:00)
[2016-12-09 10:55] VITALS: BP 121/69
[2016-12-09] MEDS: LEVOFLOXACIN 500 MG TABLET PO SCH (15:48)
[2016-12-10] MEDS ORDERED: DILTIAZEM HCL 180 MG CAPSULE.CR PO SCH (10:00)
== END 2016-12-09 17:10 | disposition home health service (06) | DRG 291 ==
LOC: ER 17:42 → UNDOADMIN 23:26 → EH 23:26 → 3N 12-03 19:19 → 3W 12-07 22:34 → 3N 12-07 23:08
PROVIDERS: ADMIT Family Medicine; ATTEND Family Medicine
PROC: 5A09357 Assistance with Respiratory Ventilation, Less than 24 Consecutive Hours, Continuous Positive Airway Pressure (ICD-10-PCS; principal; 2016-12-02)
PROC: 30233N1 Transfusion of Nonautologous Red Blood Cells into Peripheral Vein, Percutaneous Approach (ICD-10-PCS; 2016-12-03)
PROC: 30233N1 Transfusion of Nonautologous Red Blood Cells into Peripheral Vein, Percutaneous Approach (ICD-10-PCS; 2016-12-04)
PROC: 30233N1 Transfusion of Nonautologous Red Blood Cells into Peripheral Vein, Percutaneous Approach (ICD-10-PCS; 2016-12-05)
DX: I13.0 Hypertensive heart and chronic kidney disease with heart failure and stage 1 through stage 4 chronic kidney disease, or unspecified chronic kidney disease (principal); I50.23 Acute on chronic systolic (congestive) heart failure; N17.0 Acute kidney failure with tubular necrosis; J44.1 Chronic obstructive pulmonary disease with (acute) exacerbation; C34.31 Malignant neoplasm of lower lobe, right bronchus or lung; Q61.3 Polycystic kidney, unspecified; C80.1 Malignant (primary) neoplasm, unspecified; D50.0 Iron deficiency anemia secondary to blood loss (chronic); R73.03 Prediabetes; I48.2 Chronic atrial fibrillation; R91.8 Other nonspecific abnormal finding of lung field; I25.10 Atherosclerotic heart disease of native coronary artery without angina pectoris; I25.2 Old myocardial infarction; G25.81 Restless legs syndrome; E78.5 Hyperlipidemia, unspecified; K21.9 Gastro-esophageal reflux disease without esophagitis; M17.11 Unilateral primary osteoarthritis, right knee; N18.9 Chronic kidney disease, unspecified; F41.9 Anxiety disorder, unspecified; Z90.49 Acquired absence of other specified parts of digestive tract; Z66 Do not resuscitate; Z79.899 Other long term (current) drug therapy; Z87.891 Personal history of nicotine dependence; Z88.8 Allergy status to other drugs, medicaments and biological substances; Z83.3 Family history of diabetes mellitus; Z80.9 Family history of malignant neoplasm, unspecified; Z82.49 Family history of ischemic heart disease and other diseases of the circulatory system
CPT/HCPCS: 36415; 36430; 71020; 71250; 80048; 80053; 81001; 82550; 82553; 82607; 82728; 82746; 82803; 83036; 83540; 83550; 83880; 84484; 85025; 85045; 85610; 85730; 86850; 86900; 86901; 86920; 87070; 87205; 93005; 93010; 94640; 94660; 96365; 96375; 99291; J1940; J2930; J3490; J7512; J7620; P9016